=== PATIENT | female | born 1965 | race Caucasian/White ===

== ENCOUNTER → 2018-02-23 | Outpatient (CLI) | payer BC ==
[~2018-02-23] MED LIST: 00186-0370-20 IH; ASPIRIN 81M81 MG/TA2 PO; ATIVAN1 MG PO; COZAAR 50MG50 MG/TAB PO; FLOVENT DI50 MCG/Act IH; LEVOTHYROXINE PO; LISINOPRIL5 MG PO; MELATONIN3 M1 PO; MULTIPLE VITAMI1 CAP PO; PREMARIN 0.60.625 M1 PO; PREVACID 15MG15 M1 PO; SINGULAIR 110 MG/TAB PO; SYNTHROID0.05 MG/TA PO; VITAMIN D31000 IU PO
== END ==
LOC: MC.RAD 11:07
DX: Z12.31 Encounter for screening mammogram for malignant neoplasm of breast (principal)

== ENCOUNTER → 2019-02-22 | Outpatient (CLI) | payer OTHER | LOC: MC.RAD 08:21 | DX: N63.42 Unspecified lump in left breast, subareolar (principal); N64.89 Other specified disorders of breast | CPT/HCPCS: G0279 ==

== ENCOUNTER → 2019-02-26 | Outpatient (CLI) | payer OTHER | LOC: MC.RAD 07:56 | DX: N63.42 Unspecified lump in left breast, subareolar (principal); N63.21 Unspecified lump in the left breast, upper outer quadrant; Z98.82 Breast implant status ==

== ENCOUNTER 2019-03-24 08:42 | Emergency (ER) | payer OTHER ==
[~2019-03-24] VITALS: Ht 162.6 cm; Wt 104.5 kg
[2019-03-24 09:42] LABS: BASO # 0.1 (0.0-0.2); BASO % 0.6 % (0.0-2.0); EOS # 0.1 (0.0-0.7); EOS % 0.9 % (0-4.0); GRAN # 7.8 (1.4-6.5); GRAN % 66.9 % (42.2-75.2); HEMATOCRIT 42.5 % (37.0-47.0); HEMOGLOBIN 14.1 g/dl (12.5-16.0); LYMPH # 2.9 (1.2-3.4); LYMPH % 24.7 % (20.0-51.0); MEAN CELL VOLUME 92 fl (80.0-100.0); MEAN CORPUSCULAR HEMOGLOBIN 31 pg (27.0-31.0); MEAN CORPUSCULAR HGB CONC 33 g/dl (33.0-37.0); MEAN PLATELET VOLUME 10.1 fl (7.4-10.4); MONO # 0.8 (0.1-0.6); MONO % 6.4 % (1.7-9.3); PLATELET COUNT 270 K/mm3 (130-400); RED BLOOD COUNT 4.62 M/mm3 (4.10-5.30); REDCELL DISTRIBUTION WIDTH-CV 11.7 % (11.5-14.5)
[2019-03-24 09:55] LABS: ALBUMIN 3.9 gm/dL (3.5-5.0); BILIRUBIN,TOTAL 0.5 mg/dL (0.0-1.0); CALCIUM 9.2 mg/dL (8.4-10.2); CREATININE, serum 0.76 (0.52-1.25); MAGNESIUM 1.7 mg/dL (1.6-2.3); POTASSIUM 3.1 mmol/L (3.4-5.0); TOTAL PROTEIN 7.3 gm/dL (6.4-8.2)
[2019-03-24] MEDS ORDERED: MELATONIN5 M1 PO (10:01)
[2019-03-24] MEDS ORDERED: CYMBALTA 60MG60 MG PO (10:02)
[2019-03-24] MEDS ORDERED: K-DUR 10 MEQ T10 MEQ PO (10:04)
[2019-03-24] MEDS ORDERED: DOXYCYCLINE 10100 MG PO (11:04)
[2019-03-24] MEDS ORDERED: NORCO 325 MG-51 TAB PO (11:04)
[2019-03-24 12:20] VITALS: BP 112/79; PULSE 80; TEMP 98.2
== END 2019-03-24 12:25 | disposition home or self-care (01) ==
LOC: COL.ER 08:42
PROVIDERS: Emergency Medicine
DX: N61.0 Mastitis without abscess (principal); E87.6 Hypokalemia; M79.7 Fibromyalgia; Z88.2 Allergy status to sulfonamides
CPT/HCPCS: J2270; J2405

== ENCOUNTER 2019-03-25 09:37 | Inpatient (IN) | payer OTHER ==
[~2019-03-25] VITALS: Ht 162.6 cm; Wt 107.0 kg
[~2019-03-25 09:37] MED LIST changes: +CYMBALTA 60MG60 MG PO; +DOXYCYCLINE 10100 MG PO; +K-DUR 10 MEQ T10 MEQ PO; +MELATONIN5 M1 PO; +NORCO 325 MG-51 TAB PO
[2019-03-25 11:34] LABS: BASO # 0.1 (0.0-0.2); BASO % 0.6 % (0.0-2.0); EOS # 0.1 (0.0-0.7); EOS % 0.6 % (0-4.0); GRAN # 8.5 (1.4-6.5); GRAN % 67.2 % (42.2-75.2); HEMATOCRIT 41.2 % (37.0-47.0); HEMOGLOBIN 13.4 g/dl (12.5-16.0); LYMPH # 2.9 (1.2-3.4); MEAN CELL VOLUME 93 fl (80.0-100.0); MEAN CORPUSCULAR HEMOGLOBIN 30 pg (27.0-31.0); MEAN CORPUSCULAR HGB CONC 33 g/dl (33.0-37.0); MONO % 8.1 % (1.7-9.3); PLATELET COUNT 252 K/mm3 (130-400); RED BLOOD COUNT 4.42 M/mm3 (4.10-5.30); REDCELL DISTRIBUTION WIDTH-CV 11.9 % (11.5-14.5)
[2019-03-25 11:38] LABS: ALBUMIN 3.7 gm/dL (3.5-5.0); BILIRUBIN,TOTAL 0.4 mg/dL (0.0-1.0); C-REACTIVE PROTEIN 8.2 mg/dL (0.0-0.9); CALCIUM 8.9 mg/dL (8.4-10.2); CREATININE, serum 0.75 (0.52-1.25); POTASSIUM 3.9 mmol/L (3.4-5.0); TOTAL PROTEIN 7.2 gm/dL (6.4-8.2)
--- NOTE | 2019-03-25 18:00 | NUR ---
PATIENT ADMITED INTO ROOM 342 WITH CELLULITIS OF THE LEFT LAT. BREAST. BREAST IS VERY SWOLLEN, RED AND TENDER TO TOUCH WITH DRESSING INPLACE WITH SMALL AMOUNTS OF DRAINAGE NOTED. K-PAD ORDERED FOR A WARM COMPRESS. IV FLUIDS START VIA PUMP INTO RIGHT HAND. HEAD TO TOE ASSESSMENT COMPLETE. PATIENT AND ORIENTED TO ROOM. CALL LIGHT IN REACH.
[2019-03-25 18:15] VITALS: BP 124/70; PULSE 74; TEMP 98.6
--- NOTE | 2019-03-25 19:20 | NUR ---
HS meds all reviewed and given along with norco for left breast pain. See admission assessment. Assisted standby to the bathroom and voids 100mls clear yellow urine. States is 2nd time she's been up to the bathroom since admit. Crackers given for snack with meds. Kpad to left breast and pillow for splinting given.
[2019-03-25 20:11] VITALS: BP 126/69; PULSE 72; TEMP 98.3
--- NOTE | 2019-03-25 21:30 | NUR ---
Patient rests with eyes closed. Respirations with ease.
[2019-03-26] VITALS (15 sets, daily range): BP systolic 111–148; BP diastolic 61–82; PULSE 57–118; TEMP 97.7–98.4
--- NOTE | 2019-03-26 01:00 | NUR ---
Patient awakened for vitals. States dozing off and on. Reports pain left breast intermittent sharp 5/10 and norco 1 tab given. Patient NPO and took sips of water with med. Reviewed culture prelimary will take 24,48 and then final 72 hours to have results. Has Kpad off do to gets too hot at night. Ambulates to and from bathroom.
--- NOTE | 2019-03-26 01:59 | NUR ---
Patient reports pain med helped. "Been sleeping".
--- NOTE | 2019-03-26 06:10 | NUR ---
Patient just returned from the bathroom and rests back in bed. Reports headache 8/10 and left breast pain 5/10 and norco 1 tab given po. States she gets migraines. Left breast telfa dressing with serosang shadowing of drainage but not seeping through. Reinforced with two 3 by 4 telfa dressing.
[2019-03-26 06:25] LABS: BASO # 0.1 (0.0-0.2); BASO % 0.5 % (0.0-2.0); EOS # 0.2 (0.0-0.7); EOS % 2.1 % (0-4.0); GRAN # 5.3 (1.4-6.5); GRAN % 58.2 % (42.2-75.2); HEMATOCRIT 38.2 % (37.0-47.0); HEMOGLOBIN 12.1 g/dl (12.5-16.0); LYMPH # 2.8 (1.2-3.4); LYMPH % 30.5 % (20.0-51.0); MEAN CELL VOLUME 96 fl (80.0-100.0); MEAN CORPUSCULAR HEMOGLOBIN 30 pg (27.0-31.0); MEAN CORPUSCULAR HGB CONC 32 g/dl (33.0-37.0); MEAN PLATELET VOLUME 10.5 fl (7.4-10.4); MONO # 0.8 (0.1-0.6); MONO % 8.4 % (1.7-9.3); PLATELET COUNT 227 K/mm3 (130-400); REDCELL DISTRIBUTION WIDTH-CV 11.8 % (11.5-14.5)
--- NOTE | 2019-03-26 08:00 | NUR ---
SEE MORNING ASSESSMENT.
--- NOTE | 2019-03-26 16:50 | NUR ---
PATIENT TAKEN TO PERIOP VIA BED. CONSENT FORM IS SIGNED AND ON PATIENT CHART. LR TO GRAVITY FLOW TUBING. WILL WAIT FOR PATIENT ARRIVAL BACK TO ROOM 342.
--- NOTE | 2019-03-26 18:00 | NUR ---
PATIENT ARRIVED BACK TO ROOM 342 VIA BED FROM PACU. PATIENT IS AWAKE AND ALERT. LEFT BREAST INCISION AND DRAIN DRESSED WITH GAUZE, ABD PAD AND HYPAFIX AND IS CD&I. PRESENT AT THE BEDSIDE. NO OTHER NEEDS AT THIS TIME.
--- NOTE | 2019-03-26 19:00 | NUR ---
REPORT GIVEN TO JESSICA ZULETA.
--- NOTE | 2019-03-26 20:10 | NUR ---
Sitting up in bed. Spouse in room. Complains of some pain in left breast. Assessment completed. Dressing to left breast CDI. IV fluids continue to infuse without difficulty. Patient denies further needs at this time.
--- NOTE | 2019-03-26 20:55 | NUR ---
Rates pain in left breast 02/26. Pain medication administered as ordered. Patient denies further needs at this time.
--- NOTE | 2019-03-27 00:23 | NUR ---
Lying in bed. Rating pain 9/10. Patient explains that she was trying to hold off on getting pain medication until her dressing change at 0200. Explained that we can give her pain medication now, as we do not want her pain getting out of control, and we can also change the dressing at this time when the medication has decreased her pain. Patient agrees. Pain medication administered as ordered at this time.
--- NOTE | 2019-03-27 00:45 | NUR ---
Dressing change performed at this time. Removed abd pad and multiple 4x4s from left breast. Moderate amount of serosanguinous drainage noted on dressings. Patient has two patent drains in left breast. Sutures remain intact. Patient explains that there is still some hardness in her breast from the infection but nothing like it was prior to the surgery. Redness and swelling noted. Redressed site with 4x4s, abd pad, and tape. Patient tolerates procedure well. Rates pain 4/10 upon completion of dressing change. Patient denies further needs at this time.
--- NOTE | 2019-03-27 03:45 | NUR ---
Lying in bed with eyes closed. Respirations even and unlabored. No signs or symptoms of discomfort noted at this time.
[2019-03-27 04:00] VITALS: BP 138/80; PULSE 83; TEMP 98.1
--- NOTE | 2019-03-27 04:46 | NUR ---
Rates pain in left breast 02/26. Pain medication administered as ordered per patient request. Discussed with the patient on speaking with the provider on pain medication for home as she does not feel that the [facility] works for her. Patient verbalizes understanding and denies further needs.
--- NOTE | 2019-03-27 06:11 | NUR ---
Patient had uneventful night. Required Dilaudid to help control pain. Discussed with the patient speaking with the provider today to discuss oral pain medication that she can go home with as she does not feel the [place] alleviates her pain. Dressing change performed once through the night. Patient denies any further needs at this time.
--- NOTE | 2019-03-27 06:55 | NUR ---
Shift report provided to JESSICA Veliz.
--- NOTE | 2019-03-27 07:09 | NUR ---
Dressing changed at this time. Reddish drainage present. Denies other needs at this time.
[2019-03-27 07:20] VITALS: BP 128/76; PULSE 73; TEMP 98.7
--- NOTE | 2019-03-27 08:30 | NUR ---
Patient is doing well this am. Her dressing was changed at shift change by previous shift nurse. There was moderate amount of red/brown drainage. Dressing was not saturated. Adin drains in place. Most of the side and underneath parts of the left breast are red. Explained this will hopefully get better with the drainage being drained out. Patient denies nausea at this time. No other changes at this time. Call light within reach.
--- NOTE | 2019-03-27 09:50 | NUR ---
SW met with the patient to discuss a discharge plan. The patient lives in [place] with her , Rica Luna. The patient does not use DME and reports independence with ADLs. The patient's PCP is Amy Henderson and patient receives medications from [facility] with no difficulites. The patient does not have advanced directives in the EMR but reports they are completed and designate Rica. The patient plans to return home upon discharge with Rica providing transportation. There are no additional needs at this time.
[2019-03-27 11:00] VITALS: BP 111/71; PULSE 70; TEMP 98.7
[2019-03-27 16:11] VITALS: BP 121/73; PULSE 83; TEMP 97.8
--- NOTE | 2019-03-27 18:36 | NUR ---
PT DISCHARGED HOME ESCORTED BY NURSING STAFF AND ACCOMPANIED BY FRIEND. ALL BELONGINGS WITH PATIENT. PT AMBULATORY, VSS. DISCHARGED INSTRUCTIONS PROVIDED AND PT WAS EDUCATED, PT VERBALIZED UNDERSTANDING WITH NO QUESTIONS. PT SENT HOME WIT SOME GAUZE WELL.
[2019-03-27] MEDS ORDERED: AMOXICILLIN 8751 TAB PO (18:55)
[2019-03-27] MEDS ORDERED: NORCO 325 MG-51 TAB PO (18:55)
--- NOTE | 2019-03-27 19:00 | NUR ---
Dr Oliveros here to see patient. Patient will be discharging home this evening. Patient has been shown by Dr Oliveros how to change dressing to left breast. No other changes at this time. He also explained how to shower at home and the new medications ordered for home. Patient verbalized understanding. No other changes at this time. Call light within reach. Explained that the oncoming shift will discharge her.
== END 2019-03-27 20:00 | disposition home or self-care (01) | DRG 601 ==
LOC: COL.ER 09:37 → SURG 17:09
PROVIDERS: Physician Assistant; ADMIT Surgery
PROC: 0H9U00Z Drainage of Left Breast with Drainage Device, Open Approach (ICD-10-PCS; principal; 2019-03-26 17:00)
DX: N61.1 Abscess of the breast and nipple (principal); M79.7 Fibromyalgia; E87.6 Hypokalemia; J45.909 Unspecified asthma, uncomplicated; G89.29 Other chronic pain; E03.9 Hypothyroidism, unspecified; D64.9 Anemia, unspecified; Z90.710 Acquired absence of both cervix and uterus; Z85.41 Personal history of malignant neoplasm of cervix uteri; Z88.2 Allergy status to sulfonamides
CPT/HCPCS: J0690; J0696; J1170; J2270; J2405; J2704; J3010; J7030; J7042

== ENCOUNTER → 2019-06-28 | Outpatient (CLI) | payer OTHER ==
[~2019-06-28] MED LIST changes: +AMOXICILLIN 8751 TAB PO
== END ==
LOC: MC.RAD 13:54
DX: N63.42 Unspecified lump in left breast, subareolar (principal)

== ENCOUNTER → 2019-07-31 | Outpatient (CLI) | payer OTHER | LOC: MC.RAD 14:59 | DX: N63.20 Unspecified lump in the left breast, unspecified quadrant (principal) ==

== ENCOUNTER → 2019-12-31 | Outpatient (CLI) | payer OTHER | LOC: MC.RAD 14:24 | DX: N61.0 Mastitis without abscess (principal); N64.59 Other signs and symptoms in breast ==

== ENCOUNTER → 2020-04-06 | Outpatient (CLI) | payer OTHER | LOC: COL.RAD 13:55 | DX: E05.20 Thyrotoxicosis with toxic multinodular goiter without thyrotoxic crisis or storm (principal) ==

== ENCOUNTER 2020-08-31 12:23 | Day surgery (SDC) | payer OTHER ==
[~2020-08-31 12:23] MED LIST changes: -SYNTHROID0.05 MG/TA PO; +SYNTHROID0.1 MG/TAB PO
[2020-08-31 12:50] LABS: COLLECTION METHOD CLEAN CATCH
[2020-08-31 12:57] LABS: PH 7 (5-8); SQUAMOUS EPITHELIAL 0-2 /hpf; URINE APPEARANCE Clear; URINE BACTERIA None Seen /hpf; URINE BILIRUBIN Negative (NEGATIVE); URINE BLOOD 1+ (NEGATIVE); URINE COLOR Yellow; URINE GLUCOSE Negative (NEGATIVE); URINE KETONE Negative (NEGATIVE); URINE LEUKOCYTE ESTERASE Negative (NEGATIVE); URINE NITRATE Negative (NEGATIVE); URINE PROTEIN(semi-quant) Negative (NEGATIVE); URINE UROBILINOGEN Negative (NEGATIVE)
[2020-08-31 13:16] LABS: BASO # 0.1 (0.0-0.2); BASO % 0.4 % (0.0-2.0); EOS # 0.1 (0.0-0.7); EOS % 0.7 % (0-4.0); GRAN # 9.8 (1.4-6.5); GRAN % 70.1 % (42.2-75.2); HEMATOCRIT 48.7 % (37.0-47.0); HEMOGLOBIN 16.1 g/dl (12.5-16.0); LYMPH # 2.7 (1.2-3.4); LYMPH % 19.1 % (20.0-51.0); MEAN CELL VOLUME 89 fl (80.0-100.0); MEAN CORPUSCULAR HEMOGLOBIN 29 pg (27.0-31.0); MEAN CORPUSCULAR HGB CONC 33 g/dl (33.0-37.0); MEAN PLATELET VOLUME 10.5 fl (7.4-10.4); MONO # 1.3 (0.1-0.6); MONO % 9.3 % (1.7-9.3); PLATELET COUNT 298 K/mm3 (130-400); RED BLOOD COUNT 5.48 M/mm3 (4.10-5.30)
[2020-08-31 13:19] LABS: ALBUMIN 4.4 gm/dL (3.5-5.0); BILIRUBIN,TOTAL 0.7 mg/dL (0.0-1.0); CALCIUM 9.2 mg/dL (8.4-10.2); CREATININE, serum 1.32 (0.52-1.25); POTASSIUM 3.6 mmol/L (3.4-5.0); TOTAL PROTEIN 7.8 gm/dL (6.4-8.2)
[2020-08-31 17:30] VITALS: BP 154/71; PULSE 60
--- NOTE | 2020-08-31 17:36 | NUR ---
Patient up from OR. Alert and oriented x 3. Family at bedside. Post op fluids infusing per orders. Post op VSS. Patient ambulated to restroom x 1 assist with steady gait, states she feels a bit light headed upon returning to bed. Voiding light pink urine. Denies further needs at this time.
[2020-08-31 17:45] VITALS: BP 137/75; PULSE 57
[2020-08-31 18:00] VITALS: BP 139/71; PULSE 57
[2020-08-31 18:15] VITALS: BP 146/88; PULSE 56
[2020-08-31 18:45] VITALS: BP 154/60; PULSE 72
--- NOTE | 2020-08-31 18:46 | NUR ---
Reported off to shift superintendent.
[2020-08-31 19:15] VITALS: BP 156/90; PULSE 72; TEMP 98.3
--- NOTE | 2020-08-31 19:40 | NUR ---
PT READY FOR DISCHARGE. REVIEWED DISCHARGE INSTRUCTIONS WITH PATIENT. SENT HOME WITH FOSSIL 4 TABS WITH INSTRUCTION. PT VOIDING WITHOUT PROBLEM. SL TO RIGHT AC. DC'D WITHOUT PROBLEM. ANGIOCATH INTACT.
--- NOTE | 2020-08-31 19:45 | NUR ---
DISCHARGED VIA W/C TO PRIVATE CAR. PERSONAL BELONGINGS AND DISCHARGE INSTRUCTIONS SENT WITH PATIENT.
--- NOTE | 2020-08-31 22:00 | NUR ---
ATTEMPTED TO CORRECT RX NUMBER IN COMPUTER ON TAKE HOME BOTTLE OF HYDROCODONE, NOT SUCCESSFUL. RX NUMBER SHOULD READ [id number].
== END 2020-08-31 19:45 | disposition home or self-care (01) ==
LOC: COL.ER 12:23 → SDCO 15:02 → SURG 17:34 → SDCO 19:45
PROVIDERS: Emergency Medicine
DX: N20.1 Calculus of ureter (principal); I25.2 Old myocardial infarction; I10 Essential (primary) hypertension; J45.909 Unspecified asthma, uncomplicated; K21.9 Gastro-esophageal reflux disease without esophagitis; C53.9 Malignant neoplasm of cervix uteri, unspecified; F32.9 Major depressive disorder, single episode, unspecified; Z87.891 Personal history of nicotine dependence; Z79.899 Other long term (current) drug therapy; Z79.890 Hormone replacement therapy; Z85.41 Personal history of malignant neoplasm of cervix uteri
CPT/HCPCS: OP; C1769; C2617; J0690; J1100; J1170; J1885; J2405; J2704; J3010; J7030; J7120; Q9967

== ENCOUNTER 2020-09-23 15:00 | Day surgery (SDC) | payer OTHER ==
[2020-09-22 19:45] VITALS: BP 170/100; PULSE 87
[~2020-09-23] VITALS: Ht 162.6 cm; Wt 107.4 kg
[2020-09-23] VITALS (8 sets, daily range): BP systolic 126–167; BP diastolic 65–90; PULSE 69–87; TEMP 97.8–98.1
[2020-09-23] MEDS ORDERED: DIFLUCAN150 MG PO (16:32)
[2020-09-23] MEDS ORDERED: FOSAMAX 70MG TA70 MG PO (16:32)
[2020-09-23] MEDS ORDERED: ONE-A-DAY ESSE1 EACH PO (16:33)
[2020-09-23] MEDS ORDERED: PROBIOTIC FORMU1 CAP PO (16:33)
[2020-09-23] MEDS ORDERED: HAIRSKINNAILS PO (16:34)
[2020-09-23] MEDS ORDERED: DOXYCYCLINE HY100 MG PO (16:34)
[2020-09-23] MEDS ORDERED: K-DUR 10 MEQ T10 MEQ PO (16:35)
[2020-09-23] MEDS ORDERED: GLUCOPHAGE XR500 M1 PO (16:36)
[2020-09-23] MEDS ORDERED: PROTONIX 40MG T40 MG PO (16:37)
[2020-09-23] MEDS ORDERED: SYNTHROID0.1 MG/TAB PO (16:38)
--- NOTE | 2020-09-23 18:30 | NUR ---
Patient arrived to floor at 1800. She is alert and oriented. Her is at bedside. No complaints of pain or nausea. She walked into the room from the cart and was able to void. Explained she just needs to order supper and eat and than she can discharge home. No other changes at this time. Call light within reach.
--- NOTE | 2020-09-23 19:15 | NUR ---
Pt. Bp. slightly elevated. Pt. reports she did not have any of her HTN medication today. Dr. Lord notified. Gave home dose of Cozaar. Will monitor.
--- NOTE | 2020-09-23 20:20 | NUR ---
Pt. vitals more stable at this time. Pt. has med Discharge criteria. Reviewed Discharge paperwork with the pt. Pt. voices understanding. INT discontinued from lt. hand. Pt. dressed and escorted out by wheelchair.
== END 2020-09-23 20:20 | disposition home or self-care (01) ==
LOC: SDCO 15:00 → SURG 17:34 → SDCO 17:34 → SURG 17:34 → SDCO 17:45 → SURG 20:20 → SDCO 20:20 → SURG 20:20
PROVIDERS: Urology
PROC: 0TF68ZZ Fragmentation in Right Ureter, Via Natural or Artificial Opening Endoscopic (ICD-10-PCS; principal; 2020-09-23 17:45)
PROC: 0TP98DZ Removal of Intraluminal Device from Ureter, Via Natural or Artificial Opening Endoscopic (ICD-10-PCS; 2020-09-23 17:45)
DX: N20.1 Calculus of ureter (principal); E11.9 Type 2 diabetes mellitus without complications; M79.7 Fibromyalgia; I10 Essential (primary) hypertension; E03.9 Hypothyroidism, unspecified; I25.2 Old myocardial infarction; K21.9 Gastro-esophageal reflux disease without esophagitis; F32.9 Major depressive disorder, single episode, unspecified; F41.9 Anxiety disorder, unspecified; Z85.41 Personal history of malignant neoplasm of cervix uteri; Z79.890 Hormone replacement therapy; Z79.83 Long term (current) use of bisphosphonates; Z87.891 Personal history of nicotine dependence; Z79.899 Other long term (current) drug therapy; Z20.822 Contact with and (suspected) exposure to COVID-19; Z90.710 Acquired absence of both cervix and uterus; Z98.51 Tubal ligation status; Z79.84 Long term (current) use of oral hypoglycemic drugs; Z88.2 Allergy status to sulfonamides; Z80.3 Family history of malignant neoplasm of breast
CPT/HCPCS: OP; C1769; J0690; J1100; J2405; J2704; J3010; J7120; Q9967